=== PATIENT | male | born 1975 | race Caucasian/White ===

== ENCOUNTER 2020-06-01 20:55 | Emergency (ER) | payer MEDICARE, MEDICAID ==
[~2020-06-01] VITALS: Ht 177.8 cm; Wt 90.7 kg
[2020-06-01 22:04] LABS: ALBUMIN 3.2 gm/dl (3.1-4.5); ALKALINE PHOSPHATASE 64 U/L (45-117); BUN 30 mg/dl (7-24); CHLORIDE 103 mmol/L (98-107); CREATININE 2.34 mg/dL (0.70-1.30); POTASSIUM 4.4 mmol/L (3.5-5.1); SGOT/AST 48 IU/L (3-35); SGPT/ALT 34 U/L (12-78); SODIUM 135 mmol/L (136-145); TOTAL PROTEIN 7.1 gm/dL (6.4-8.2)
[2020-06-01 22:05] LABS: TROPONIN I < 0.015 ng/ml (<0.045)
[2020-06-01 22:12] LABS: BASO # 0.1 10*3/uL (0.0-0.1); BASO % 0.5 % (0.0-1.0); EOS % 0.2 % (1.0-4.0); HEMATOCRIT 37.1 % (42.0-52.0); LYMPH # 2.1 10*3/uL (1.3-4.4); LYMPH % 18.6 % (27.0-41.0); MEAN CELL VOLUME 94.4 fl (80.0-94.0); MEAN CORPUSCULAR HGB 31.8 pg (27.0-31.0); MEAN CORPUSCULAR HGB CONC 33.7 g/dl (33.0-37.0); MEAN PLATELET VOLUME 9.5 fl (9.6-12.3); MONO # 1.2 10*3/uL (0.1-1.0); MONO % 10.6 % (3.0-9.0); NEUT # 7.8 10*3/uL (2.3-7.9); NEUT % 69.4 % (47.0-73.0); PLATELET COUNT AUTOMATED 203 10*3/uL (130-400); RED BLOOD COUNT 3.93 10*6/uL (4.50-5.90); RED CELL DISTRI WIDTH 11.7 % (0-14.5); WHITE BLOOD COUNT 11.2 10*3/uL (4.8-10.8)
== END 2020-06-02 02:42 | disposition short-term general hospital (02) ==
LOC: ED 20:55
PROVIDERS: Student in an Organized Health Care Education/Training Program
DX: J93.9 Pneumothorax, unspecified (principal); T14.90XA Injury, unspecified, initial encounter; X58.XXXA Exposure to other specified factors, initial encounter; Y93.89 Activity, other specified; Y92.89 Other specified places as the place of occurrence of the external cause; Y99.8 Other external cause status

== ENCOUNTER 2021-08-12 21:00 | Inpatient (IN) | payer MEDICARE, MEDICAID ==
[~2021-08-12] VITALS: Ht 170.1 cm; Wt 64.0 kg
[2021-08-12 21:19] VITALS: BP 116/66
[2021-08-12 21:29] LABS: HEMATOCRIT 32.1 % (42.0-52.0); MEAN CELL VOLUME 87.2 fl (80.0-94.0); MEAN CORPUSCULAR HGB 32.1 pg (27.0-31.0); MEAN CORPUSCULAR HGB CONC 36.8 g/dl (33.0-37.0); MEAN PLATELET VOLUME 10.4 fl (9.6-12.3); PLATELET COUNT AUTOMATED 124 10*3/uL (130-400); RED BLOOD COUNT 3.68 10*6/uL (4.50-5.90); RED CELL DISTRI WIDTH 11.9 % (0-14.5); WHITE BLOOD COUNT 4.9 10*3/uL (4.8-10.8)
[2021-08-12 21:31] LABS: MANUAL DIFF REFLEX YES
[2021-08-12 21:31] LABS: BILIRUBIN Negative (Negative); BLOOD Trace-Lysed (Negative); CLARITY Clear (Clear); COLOR Yellow (Yellow); GLUCOSE 3+ (Negative); KETONE 1+ (Negative); LEUKO ESTERASE Negative (Negative); NITRITE Negative (Negative); UROBILINOGEN 0.2 E.U./dl (0.0-1.0)
[2021-08-12 21:37] LABS: BACTERIA 1+; EPITHELIAL CELLS 0-2; RBC 0-2 rbc/hpf (0-2); WBC 0-2 wbc/hpf (0-5)
[2021-08-12 21:41] VITALS: BP 110/67
[2021-08-12 21:44] LABS: ALBUMIN 2.8 gm/dl (3.1-4.5); CREATININE 5.55 mg/dL (0.70-1.30); POTASSIUM 4.5 mmol/L (3.5-5.1); TOTAL PROTEIN 6.7 gm/dL (6.4-8.2)
[2021-08-12 22:07] LABS: TOTAL CELLS COUNTED 100 #CELLS
[2021-08-12 22:08] LABS: PLATELET SUFFICIENCY LOW (NORMAL)
[2021-08-12 22:40] VITALS: BP 110/68
[2021-08-12 23:42] VITALS: BP 125/68
[2021-08-13] VITALS (21 sets, daily range): BP systolic 97–197; BP diastolic 56–98
[2021-08-13 01:12] LABS: CREATININE 5.25 mg/dL (0.70-1.30); POTASSIUM 4.2 mmol/L (3.5-5.1)
[2021-08-13 04:21] LABS: HEMATOCRIT 33.3 % (42.0-52.0); MEAN CELL VOLUME 87.2 fl (80.0-94.0); MEAN CORPUSCULAR HGB 32.5 pg (27.0-31.0); PLATELET COUNT AUTOMATED 104 10*3/uL (130-400); RED BLOOD COUNT 3.82 10*6/uL (4.50-5.90); RED CELL DISTRI WIDTH 12.2 % (0-14.5)
[2021-08-13 04:31] LABS: MANUAL DIFF REFLEX YES; MEAN CORPUSCULAR HGB CONC 37.2 g/dl (33.0-37.0)
[2021-08-13 04:32] LABS: WHITE BLOOD COUNT 1.9 10*3/uL (4.8-10.8)
[2021-08-13 04:37] LABS: CREATININE 4.9 mg/dL (0.70-1.30); POTASSIUM 3.9 mmol/L (3.5-5.1)
[2021-08-13 04:53] LABS: PLATELET SUFFICIENCY LOW (NORMAL); TOTAL CELLS COUNTED 100 #CELLS
[2021-08-13 06:28] LABS: POTASSIUM 3.9 mmol/L (3.5-5.1)
[2021-08-13 06:44] LABS: CREATININE 4.92 mg/dL (0.70-1.30); FREE T4 1.11 ng/dl (0.76-1.46); THYROID STIM HORMONE (HS) 1.95 uIU/ml (0.358-4.75)
[2021-08-13 07:51] LABS: CREATININE 4.83 mg/dL (0.70-1.30); POTASSIUM 4.2 mmol/L (3.5-5.1)
[2021-08-13 11:27] LABS: URINE AMPHETAMINES < 1000 (1000ng/ml); URINE BARBITURATES < 200 (200ng/ml); URINE BENZODIAZEPINES < 200 (200ng/ml); URINE CANNABINOIDS (THC) < 50 (50ng/ml); URINE COCAINE < 300 (300ng/ml); URINE METHADONE < 300 (300ng/ml); URINE OPIATES < 300 (300ng/ml)
[2021-08-13 11:31] LABS: URINE PHENCYCLIDINE < 25 (25ng/ml)
[2021-08-13 12:37] LABS: ARTERIAL BLOOD GAS PH 7.467 (7.35-7.45); ARTERIAL BLOOD GAS PO2 103.3 (80-90)
[2021-08-13 13:38] LABS: CREATININE 4.53 mg/dL (0.70-1.30); POTASSIUM 4.4 mmol/L (3.5-5.1)
[2021-08-13 16:22] LABS: CREATININE 4.27 mg/dL (0.70-1.30); POTASSIUM 3.8 mmol/L (3.5-5.1)
[2021-08-13] MEDS ORDERED: RISPERIDONE M-0.5 MG PO (17:38)
[2021-08-13] MEDS ORDERED: LAMICTAL200 MG PO (17:39)
[2021-08-13] MEDS ORDERED: DEPAKOTE ER500 MG PO (17:40)
[2021-08-13] MEDS ORDERED: Depakote500 MG PO (17:41)
[2021-08-13] MEDS ORDERED: CARVEDILOL6.25 MG PO (17:41)
[2021-08-13] MEDS ORDERED: LISINOPRIL2.5 MG PO (17:41)
[2021-08-13] MEDS ORDERED: ZETIA10 MG PO (17:42)
[2021-08-13] MEDS ORDERED: HUMULIN N100 UNIT/1 SC (17:43)
[2021-08-13] MEDS ORDERED: HUMULIN N100 UNIT/1 SQ (17:43)
[2021-08-13] MEDS ORDERED: TRAZODONE100 MG PO (17:44)
[2021-08-13] MEDS ORDERED: SIMVASTATIN20 MG PO (17:44)
[2021-08-13] MEDS ORDERED: FUROSEMIDE40 MG PO (17:44)
[2021-08-13 20:13] LABS: CREATININE 4.11 mg/dL (0.70-1.30); POTASSIUM 4.2 mmol/L (3.5-5.1)
[2021-08-14] VITALS (12 sets, daily range): BP systolic 92–135; BP diastolic 53–76
[2021-08-14 00:38] LABS: CREATININE 3.88 mg/dL (0.70-1.30); POTASSIUM 3.7 mmol/L (3.5-5.1)
[2021-08-14 04:26] LABS: MEAN PLATELET VOLUME 10.3 fl (9.6-12.3); PLATELET COUNT AUTOMATED 97 10*3/uL (130-400); RED BLOOD COUNT 3.19 10*6/uL (4.50-5.90); RED CELL DISTRI WIDTH 12.6 % (0-14.5)
[2021-08-14 04:34] LABS: MANUAL DIFF REFLEX YES; MEAN CELL VOLUME 90.9 fl (80.0-94.0)
[2021-08-14 05:40] LABS: CREATININE 3.68 mg/dL (0.70-1.30); POTASSIUM 3.7 mmol/L (3.5-5.1)
[2021-08-14 07:17] LABS: MEAN CORPUSCULAR HGB CONC 35.2 g/dl (33.0-37.0)
[2021-08-14 07:21] LABS: TOTAL CELLS COUNTED 100 #CELLS
[2021-08-14 07:22] LABS: PLATELET SUFFICIENCY LOW (NORMAL); POLYCHROMASIA SLIGHT; WHITE BLOOD COUNT 7.7 10*3/uL (4.8-10.8)
[2021-08-15] VITALS (13 sets, daily range): BP systolic 87–143; BP diastolic 50–73
[2021-08-15 06:11] LABS: CREATININE 2.5 mg/dL (0.70-1.30); POTASSIUM 4.2 mmol/L (3.5-5.1)
[2021-08-15 06:16] LABS: VALPROIC ACID (DEPAKENE) 33.1 ug/ml (50-100)
[2021-08-15 06:57] LABS: HEMATOCRIT 27.7 % (42.0-52.0); MEAN CORPUSCULAR HGB 32.9 pg (27.0-31.0); MEAN CORPUSCULAR HGB CONC 33.6 g/dl (33.0-37.0); MEAN PLATELET VOLUME 11.6 fl (9.6-12.3); NUCLEATED RED BLOOD CELL 0.6 % (0.0-0.0); PLATELET COUNT AUTOMATED 83 10*3/uL (130-400); RED BLOOD COUNT 2.83 10*6/uL (4.50-5.90); WHITE BLOOD COUNT 6.6 10*3/uL (4.8-10.8)
[2021-08-15 06:59] LABS: MANUAL DIFF REFLEX YES; MEAN CELL VOLUME 97.9 fl (80.0-94.0)
[2021-08-15 07:04] LABS: PLATELET SUFFICIENCY LOW (NORMAL); ROULEAUX SLIGHT; TOTAL CELLS COUNTED 100 #CELLS
[2021-08-15 07:09] LABS: TOXIC GRANULATION SLIGHT
[2021-08-15 12:30] LABS: ABG BASE EXCESS 5.8 mmol/L (-2.0-2.0); ARTERIAL BLOOD GAS PH 7.49 (7.35-7.45); ARTERIAL BLOOD GAS PO2 82.8 (80-90)
[2021-08-16] VITALS (12 sets, daily range): BP systolic 90–112; BP diastolic 49–62
[2021-08-16 05:03] LABS: CREATININE 2.31 mg/dL (0.70-1.30); POTASSIUM 3.6 mmol/L (3.5-5.1)
[2021-08-16 06:58] LABS: HEMATOCRIT 26.6 % (42.0-52.0); MEAN CORPUSCULAR HGB 32.3 pg (27.0-31.0); MEAN CORPUSCULAR HGB CONC 31.6 g/dl (33.0-37.0); MEAN PLATELET VOLUME 11.5 fl (9.6-12.3); NUCLEATED RED BLOOD CELL 0.1 10*3/uL (0.0-0.0); PLATELET COUNT AUTOMATED 95 10*3/uL (130-400); RED CELL DISTRI WIDTH 13.1 % (0-14.5); WHITE BLOOD COUNT 7.2 10*3/uL (4.8-10.8)
[2021-08-16 07:30] LABS: MANUAL DIFF REFLEX YES; MEAN CELL VOLUME 102.3 fl (80.0-94.0)
[2021-08-16 07:37] LABS: ATYPICAL LYMPHS 1 % (0-0); BASOPHILS 1 % (0-1); PLATELET SUFFICIENCY LOW (NORMAL); POLYCHROMASIA SLIGHT; ROULEAUX SLIGHT; TOTAL CELLS COUNTED 100 #CELLS; TOXIC GRANULATION SLIGHT
[2021-08-16 10:42] LABS: BILIRUBIN Negative (Negative); BLOOD 2+ (Negative); CLARITY Clear (Clear); COLOR Yellow (Yellow); GLUCOSE 3+ (Negative); KETONE Trace (Negative); LEUKO ESTERASE Negative (Negative); NITRITE Negative (Negative); PH 5.5 (4.5-8.0)
[2021-08-16 12:18] LABS: CREATININE 2.16 mg/dL (0.70-1.30); POTASSIUM 4.1 mmol/L (3.5-5.1)
[2021-08-16 20:35] LABS: CREATININE 1.85 mg/dL (0.70-1.30); POTASSIUM 3.4 mmol/L (3.5-5.1)
[2021-08-17] VITALS (10 sets, daily range): BP systolic 92–145; BP diastolic 48–73
[2021-08-17 02:17] LABS: CREATININE 1.75 mg/dL (0.70-1.30)
[2021-08-17 06:30] LABS: MEAN CELL VOLUME 103.3 fl (80.0-94.0); MEAN CORPUSCULAR HGB 32.6 pg (27.0-31.0); MEAN CORPUSCULAR HGB CONC 31.6 g/dl (33.0-37.0); MEAN PLATELET VOLUME 10.9 fl (9.6-12.3); NUCLEATED RED BLOOD CELL 0.1 10*3/uL (0.0-0.0); NUCLEATED RED BLOOD CELL 1.1 % (0.0-0.0); PLATELET COUNT AUTOMATED 100 10*3/uL (130-400); RED BLOOD COUNT 2.42 10*6/uL (4.50-5.90); RED CELL DISTRI WIDTH 12.4 % (0-14.5); WHITE BLOOD COUNT 5.3 10*3/uL (4.8-10.8)
[2021-08-17 06:32] LABS: ALBUMIN 1.6 gm/dl (3.1-4.5); POTASSIUM 3.7 mmol/L (3.5-5.1)
[2021-08-17 06:38] LABS: CREATININE 1.63 mg/dL (0.70-1.30); TOTAL PROTEIN 5.9 gm/dL (6.4-8.2)
[2021-08-17 07:08] LABS: MANUAL DIFF REFLEX YES
[2021-08-17 07:37] LABS: PLATELET SUFFICIENCY LOW (NORMAL); POLYCHROMASIA SLIGHT; TOTAL CELLS COUNTED 100 #CELLS
[2021-08-17 07:38] LABS: ROULEAUX SLIGHT; TOXIC GRANULATION SLIGHT
[2021-08-17 12:39] LABS: BUN 37 mg/dl (7-24); CHLORIDE 108 mmol/L (98-107); CREATININE 1.54 mg/dL (0.70-1.30); POTASSIUM 3.9 mmol/L (3.5-5.1); SODIUM 144 mmol/L (136-145)
[2021-08-17 15:01] LABS: ABG BASE EXCESS 6.3 mmol/L (-2.0-2.0); ARTERIAL BLOOD GAS PH 7.494 (7.35-7.45)
[2021-08-18] VITALS: BP 120/69
[2021-08-18 04:00] VITALS: BP 113/61
[2021-08-18 05:44] LABS: ALBUMIN 1.6 gm/dl (3.1-4.5); ALKALINE PHOSPHATASE 85 U/L (45-117); BUN 37 mg/dl (7-24); CHLORIDE 109 mmol/L (98-107); POTASSIUM 4.2 mmol/L (3.5-5.1); SGOT/AST 32 IU/L (3-35); SGPT/ALT 13 U/L (12-78); SODIUM 144 mmol/L (136-145)
[2021-08-18 06:17] LABS: HEMATOCRIT 27.7 % (42.0-52.0); MEAN CORPUSCULAR HGB 31.9 pg (27.0-31.0); MEAN CORPUSCULAR HGB CONC 32.1 g/dl (33.0-37.0); MEAN PLATELET VOLUME 10.7 fl (9.6-12.3); NUCLEATED RED BLOOD CELL 0.1 10*3/uL (0.0-0.0); NUCLEATED RED BLOOD CELL 1.1 % (0.0-0.0); RED BLOOD COUNT 2.79 10*6/uL (4.50-5.90); RED CELL DISTRI WIDTH 11.8 % (0-14.5); WHITE BLOOD COUNT 6.4 10*3/uL (4.8-10.8)
[2021-08-18 06:44] LABS: MEAN CELL VOLUME 99.3 fl (80.0-94.0)
[2021-08-18 06:45] LABS: MANUAL DIFF REFLEX YES; PLATELET COUNT AUTOMATED 143 10*3/uL (130-400)
[2021-08-18 08:00] VITALS: BP 122/61
[2021-08-18 08:42] LABS: BASOPHILS 1 % (0-1); PLATELET SUFFICIENCY NORMAL (NORMAL); TOTAL CELLS COUNTED 100 #CELLS
[2021-08-18 12:00] VITALS: BP 97/61
[2021-08-18 16:00] VITALS: BP 135/64
[2021-08-18 20:00] VITALS: BP 128/83
[2021-08-19] VITALS: BP 130/66
[2021-08-19 04:58] LABS: BUN 31 mg/dl (7-24); CHLORIDE 104 mmol/L (98-107); CREATININE 1.43 mg/dL (0.70-1.30); SODIUM 140 mmol/L (136-145)
[2021-08-19 07:23] LABS: HEMATOCRIT 30.8 % (42.0-52.0); MEAN CORPUSCULAR HGB 32.1 pg (27.0-31.0); MEAN CORPUSCULAR HGB CONC 31.8 g/dl (33.0-37.0); MEAN PLATELET VOLUME 10.3 fl (9.6-12.3); NUCLEATED RED BLOOD CELL 0.1 10*3/uL (0.0-0.0); NUCLEATED RED BLOOD CELL 0.8 % (0.0-0.0); RED BLOOD COUNT 3.05 10*6/uL (4.50-5.90); RED CELL DISTRI WIDTH 11.8 % (0-14.5); WHITE BLOOD COUNT 7.5 10*3/uL (4.8-10.8)
[2021-08-19 07:27] LABS: MANUAL DIFF REFLEX YES; PLATELET COUNT AUTOMATED 222 10*3/uL (130-400)
[2021-08-19 07:32] LABS: TOTAL CELLS COUNTED 100 #CELLS
[2021-08-19 07:33] LABS: TOXIC GRANULATION MODERATE
[2021-08-19 07:34] LABS: OVALOCYTES FEW; POLYCHROMASIA SLIGHT
[2021-08-19 07:35] LABS: PLATELET SUFFICIENCY NORMAL (NORMAL)
[2021-08-19 08:00] VITALS: BP 123/57
[2021-08-19 12:00] VITALS: BP 128/73
[2021-08-19] MEDS ORDERED: CEFDINIR300 MG PO (14:18)
[2021-08-19 16:00] VITALS: BP 133/67
[2021-08-19 20:00] VITALS: BP 131/58
[2021-08-20] VITALS: BP 127/56
[2021-08-20 06:25] LABS: BUN 24 mg/dl (7-24); CHLORIDE 102 mmol/L (98-107); CREATININE 1.44 mg/dL (0.70-1.30); POTASSIUM 4.3 mmol/L (3.5-5.1); SODIUM 138 mmol/L (136-145)
[2021-08-20 06:30] LABS: HEMATOCRIT 29.9 % (42.0-52.0); MEAN CELL VOLUME 99.3 fl (80.0-94.0); MEAN CORPUSCULAR HGB 31.9 pg (27.0-31.0); MEAN CORPUSCULAR HGB CONC 32.1 g/dl (33.0-37.0); MEAN PLATELET VOLUME 9.5 fl (9.6-12.3); NUCLEATED RED BLOOD CELL 0.4 % (0.0-0.0); PLATELET COUNT AUTOMATED 284 10*3/uL (130-400); RED BLOOD COUNT 3.01 10*6/uL (4.50-5.90); RED CELL DISTRI WIDTH 11.7 % (0-14.5); WHITE BLOOD COUNT 6.7 10*3/uL (4.8-10.8)
[2021-08-20 06:53] LABS: MANUAL DIFF REFLEX YES
[2021-08-20 07:31] LABS: PLATELET SUFFICIENCY NORMAL (NORMAL); POLYCHROMASIA SLIGHT; TOTAL CELLS COUNTED 100 #CELLS; TOXIC GRANULATION SLIGHT
[2021-08-20 08:00] VITALS: BP 126/54
[2021-08-20 11:55] VITALS: BP 98/70
[2021-08-20 16:00] VITALS: BP 91/47
[2021-08-20 20:00] VITALS: BP 97/54
[2021-08-21] VITALS: BP 91/50
[2021-08-21 06:23] LABS: POTASSIUM 4.5 mmol/L (3.5-5.1)
[2021-08-21 06:25] LABS: CREATININE 1.68 mg/dL (0.70-1.30)
[2021-08-21 06:35] LABS: BASO % 0.5 % (0.0-1.0); EOS # 0.1 10*3/uL (0.0-0.4); EOS % 1.5 % (1.0-4.0); HEMATOCRIT 25.2 % (42.0-52.0); LYMPH # 2.4 10*3/uL (1.3-4.4); LYMPH % 36.3 % (27.0-41.0); MEAN CELL VOLUME 97.7 fl (80.0-94.0); MEAN CORPUSCULAR HGB 32.6 pg (27.0-31.0); MEAN CORPUSCULAR HGB CONC 33.3 g/dl (33.0-37.0); MEAN PLATELET VOLUME 9.4 fl (9.6-12.3); MONO # 0.8 10*3/uL (0.1-1.0); NEUT # 3.1 10*3/uL (2.3-7.9); NEUT % 47.2 % (47.0-73.0); NUCLEATED RED BLOOD CELL 0.6 % (0.0-0.0); PLATELET COUNT AUTOMATED 347 10*3/uL (130-400); RED BLOOD COUNT 2.58 10*6/uL (4.50-5.90); RED CELL DISTRI WIDTH 11.6 % (0-14.5); WHITE BLOOD COUNT 6.5 10*3/uL (4.8-10.8)
[2021-08-21 08:00] VITALS: BP 97/57
[2021-08-21 12:00] VITALS: BP 109/55
[2021-08-21] MEDS ORDERED: HUMALOG100 UNIT/1 SC (15:03)
[2021-08-21 15:59] VITALS: BP 121/56
[2021-08-22 04:06] LABS: TB1 Ag VALUE 0.01 IU/mL (.)
== END 2021-08-21 19:15 | DRG 870 ==
LOC: ED 21:00 → ICCU 08-13 02:06 → EDHOLD 08-13 02:06 → ICCU 08-13 07:27 → EDHOLD 08-13 07:30 → ICCU 08-13 08:21 → 5E 08-19 16:59
PROVIDERS: Internal Medicine; Internal Medicine Critical Care Medicine; Internal Medicine Infectious Disease; Student in an Organized Health Care Education/Training Program; ADMIT Student in an Organized Health Care Education/Training Program; ATTEND Student in an Organized Health Care Education/Training Program
PROC: 0BH17EZ Insertion of Endotracheal Airway into Trachea, Via Natural or Artificial Opening (ICD-10-PCS; 2021-08-13)
PROC: 5A1955Z Respiratory Ventilation, Greater than 96 Consecutive Hours (ICD-10-PCS; 2021-08-13)
PROC: 02HV33Z Insertion of Infusion Device into Superior Vena Cava, Percutaneous Approach (ICD-10-PCS; 2021-08-13)
PROC: B548ZZA Ultrasonography of Superior Vena Cava, Guidance (ICD-10-PCS; 2021-08-13)
PROC: BD1BYZZ Fluoroscopy of Mouth/Oropharynx using Other Contrast (ICD-10-PCS; principal; 2021-08-21)
DX: A41.9 Sepsis, unspecified organism (principal); E10.10 Type 1 diabetes mellitus with ketoacidosis without coma; J96.01 Acute respiratory failure with hypoxia; N17.0 Acute kidney failure with tubular necrosis; E43 Unspecified severe protein-calorie malnutrition; J15.5 Pneumonia due to Escherichia coli; D61.818 Other pancytopenia; E87.1 Hypo-osmolality and hyponatremia; Z66 Do not resuscitate; Z51.5 Encounter for palliative care; T17.900A Unspecified foreign body in respiratory tract, part unspecified causing asphyxiation, initial encounter; D69.6 Thrombocytopenia, unspecified; N18.9 Chronic kidney disease, unspecified; R65.20 Severe sepsis without septic shock; R56.9 Unspecified convulsions; E78.5 Hyperlipidemia, unspecified; F41.9 Anxiety disorder, unspecified; E10.22 Type 1 diabetes mellitus with diabetic chronic kidney disease; I12.9 Hypertensive chronic kidney disease with stage 1 through stage 4 chronic kidney disease, or unspecified chronic kidney disease; Y92.89 Other specified places as the place of occurrence of the external cause; Z68.22 Body mass index [BMI] 22.0-22.9, adult

== ENCOUNTER 2021-08-26 05:28 | Inpatient (IN) | payer MEDICARE, MEDICAID ==
[~2021-08-26] VITALS: Ht 165.1 cm; Wt 65.6 kg
[2021-08-26] VITALS (7 sets, daily range): BP systolic 87–111; BP diastolic 49–62
[~2021-08-26 05:28] MED LIST: CARVEDILOL6.25 MG PO; CEFDINIR300 MG PO; DEPAKOTE ER500 MG PO; Depakote500 MG PO; FUROSEMIDE40 MG PO; HUMALOG100 UNIT/1 SC; HUMULIN N100 UNIT/1 SC; HUMULIN N100 UNIT/1 SQ; LAMICTAL200 MG PO; LISINOPRIL2.5 MG PO; RISPERIDONE M-0.5 MG PO; SIMVASTATIN20 MG PO; TRAZODONE100 MG PO; ZETIA10 MG PO
[2021-08-26 06:00] LABS: ABG BASE EXCESS 5.4 mmol/L (-2.0-2.0); ARTERIAL BLOOD GAS PH 7.419 (7.35-7.45); ARTERIAL BLOOD GAS PO2 76.3 (80-90)
[2021-08-26 06:18] LABS: BASO % 0.3 % (0.0-1.0); EOS % 0.3 % (1.0-4.0); HEMATOCRIT 29.7 % (42.0-52.0); LYMPH # 2.2 10*3/uL (1.3-4.4); MEAN CELL VOLUME 96.7 fl (80.0-94.0); MEAN CORPUSCULAR HGB 32.6 pg (27.0-31.0); MEAN CORPUSCULAR HGB CONC 33.7 g/dl (33.0-37.0); MEAN PLATELET VOLUME 8.6 fl (9.6-12.3); MONO # 0.7 10*3/uL (0.1-1.0); MONO % 6.9 % (3.0-9.0); NEUT # 7.4 10*3/uL (2.3-7.9); NEUT % 70.4 % (47.0-73.0); PLATELET COUNT AUTOMATED 589 10*3/uL (130-400); RED BLOOD COUNT 3.07 10*6/uL (4.50-5.90); RED CELL DISTRI WIDTH 12.8 % (0-14.5); WHITE BLOOD COUNT 10.5 10*3/uL (4.8-10.8)
[2021-08-26 06:26] LABS: ALKALINE PHOSPHATASE 111 U/L (45-117); BUN 15 mg/dl (7-24); CHLORIDE 99 mmol/L (98-107); CREATININE 1.74 mg/dL (0.70-1.30); POTASSIUM 3.6 mmol/L (3.5-5.1); SGOT/AST 18 IU/L (3-35); SGPT/ALT 21 U/L (12-78); SODIUM 132 mmol/L (136-145); TOTAL PROTEIN 7.2 gm/dL (6.4-8.2)
[2021-08-26 06:41] LABS: BILIRUBIN Negative (Negative); BLOOD Negative (Negative); CLARITY Clear (Clear); COLOR Yellow (Yellow); GLUCOSE 3+ (Negative); KETONE Negative (Negative); LEUKO ESTERASE Negative (Negative); NITRITE Negative (Negative); SPECIFIC GRAVITY 1.015 (1.001-1.030); UROBILINOGEN 0.2 E.U./dl (0.0-1.0)
[2021-08-26 06:56] LABS: EPITHELIAL CELLS 0-2; WBC 0-2 wbc/hpf (0-5)
[2021-08-26 06:57] LABS: BACTERIA TRACE; HYALINE CAST 21-30; MUCOUS 1+
[2021-08-26 18:07] LABS: CREATININE 1.55 mg/dL (0.70-1.30)
[2021-08-27 06:26] LABS: BASO % 0.6 % (0.0-1.0); EOS % 0.5 % (1.0-4.0); HEMATOCRIT 25.6 % (42.0-52.0); LYMPH % 31.4 % (27.0-41.0); MEAN CORPUSCULAR HGB 32.6 pg (27.0-31.0); MEAN CORPUSCULAR HGB CONC 33.6 g/dl (33.0-37.0); MEAN PLATELET VOLUME 8.8 fl (9.6-12.3); MONO # 0.7 10*3/uL (0.1-1.0); MONO % 10.7 % (3.0-9.0); NEUT # 3.5 10*3/uL (2.3-7.9); NEUT % 56.3 % (47.0-73.0); PLATELET COUNT AUTOMATED 456 10*3/uL (130-400); RED BLOOD COUNT 2.64 10*6/uL (4.50-5.90); WHITE BLOOD COUNT 6.3 10*3/uL (4.8-10.8)
[2021-08-27 06:36] LABS: BUN 13 mg/dl (7-24); CHLORIDE 101 mmol/L (98-107); CREATININE 1.24 mg/dL (0.70-1.30); POTASSIUM 3.9 mmol/L (3.5-5.1); SODIUM 136 mmol/L (136-145)
[2021-08-27 08:00] VITALS: BP 108/45
[2021-08-27 12:00] VITALS: BP 110/67
[2021-08-27 16:00] VITALS: BP 92/66
[2021-08-27 20:00] VITALS: BP 100/42
[2021-08-28] VITALS: BP 88/46; BP 92/50
[2021-08-28 12:15] VITALS: BP 115/54
[2021-08-28 15:58] VITALS: BP 120/58
[2021-08-28 20:00] VITALS: BP 106/60
[2021-08-29] VITALS: BP 99/52
[2021-08-29 06:16] LABS: BASO # 0.1 10*3/uL (0.0-0.1); BASO % 1.4 % (0.0-1.0); EOS % 0.5 % (1.0-4.0); HEMATOCRIT 25.3 % (42.0-52.0); LYMPH # 3.3 10*3/uL (1.3-4.4); LYMPH % 52.8 % (27.0-41.0); MEAN CELL VOLUME 94.8 fl (80.0-94.0); MEAN CORPUSCULAR HGB 31.8 pg (27.0-31.0); MEAN CORPUSCULAR HGB CONC 33.6 g/dl (33.0-37.0); MEAN PLATELET VOLUME 9.1 fl (9.6-12.3); MONO # 0.6 10*3/uL (0.1-1.0); NEUT # 2.2 10*3/uL (2.3-7.9); NUCLEATED RED BLOOD CELL 0.3 % (0.0-0.0); PLATELET COUNT AUTOMATED 369 10*3/uL (130-400); RED BLOOD COUNT 2.67 10*6/uL (4.50-5.90); WHITE BLOOD COUNT 6.3 10*3/uL (4.8-10.8)
[2021-08-29 06:39] LABS: BUN 14 mg/dl (7-24); CHLORIDE 100 mmol/L (98-107); CREATININE 1.29 mg/dL (0.70-1.30); POTASSIUM 3.7 mmol/L (3.5-5.1); SODIUM 137 mmol/L (136-145)
[2021-08-29 07:43] VITALS: BP 90/44
[2021-08-29] MEDS ORDERED: VITAMIN D350 MC2 PO (10:44)
[2021-08-29] MEDS ORDERED: Humalog SQ (10:44)
== END 2021-08-29 11:23 | DRG 637 ==
LOC: ED 05:28 → 5E 08:08 → EDHOLD 08:08 → 5E 09:51
PROVIDERS: Emergency Medicine; Registered Nurse; ADMIT Internal Medicine; ATTEND Internal Medicine
PROC: BD1BYZZ Fluoroscopy of Mouth/Oropharynx using Other Contrast (ICD-10-PCS; principal; 2021-08-28)
DX: E10.649 Type 1 diabetes mellitus with hypoglycemia without coma (principal); E43 Unspecified severe protein-calorie malnutrition; G93.41 Metabolic encephalopathy; J96.11 Chronic respiratory failure with hypoxia; N17.0 Acute kidney failure with tubular necrosis; N18.32 Chronic kidney disease, stage 3b; Z20.822 Contact with and (suspected) exposure to COVID-19; Z66 Do not resuscitate; R56.9 Unspecified convulsions; E78.2 Mixed hyperlipidemia; F41.9 Anxiety disorder, unspecified; Z51.5 Encounter for palliative care; E10.22 Type 1 diabetes mellitus with diabetic chronic kidney disease; D53.9 Nutritional anemia, unspecified; R62.50 Unspecified lack of expected normal physiological development in childhood; F43.21 Adjustment disorder with depressed mood; Z68.23 Body mass index [BMI] 23.0-23.9, adult; Z82.49 Family history of ischemic heart disease and other diseases of the circulatory system; Z79.4 Long term (current) use of insulin; Z79.899 Other long term (current) drug therapy

== ENCOUNTER 2021-09-09 00:28 | Inpatient (IN) | payer MEDICARE, MEDICAID ==
[2021-09-09] VITALS (8 sets, daily range): BP systolic 110–138; BP diastolic 57–94
[~2021-09-09] VITALS: Ht 177.8 cm; Wt 66.7 kg
[~2021-09-09 00:28] MED LIST changes: +Humalog SQ; +VITAMIN D350 MC2 PO
[2021-09-09] MEDS ORDERED: TYLENOL325 M1 PO (00:50)
[2021-09-09] MEDS ORDERED: LANTUS SOL100 UNIT/1 SC (00:51)
[2021-09-09] MEDS ORDERED: DEPAKOTE SPRIN125 MG PO ×2 (00:52→00:53)
[2021-09-09 01:20] LABS: BASO % 0.5 % (0.0-1.0); HEMATOCRIT 29.9 % (42.0-52.0); LYMPH # 1.9 10*3/uL (1.3-4.4); LYMPH % 52.9 % (27.0-41.0); MEAN CELL VOLUME 96.8 fl (80.0-94.0); MEAN CORPUSCULAR HGB 32.7 pg (27.0-31.0); MEAN CORPUSCULAR HGB CONC 33.8 g/dl (33.0-37.0); MEAN PLATELET VOLUME 9.5 fl (9.6-12.3); MONO # 0.3 10*3/uL (0.1-1.0); MONO % 7.9 % (3.0-9.0); NEUT # 1.4 10*3/uL (2.3-7.9); NEUT % 38.4 % (47.0-73.0); PLATELET COUNT AUTOMATED 162 10*3/uL (130-400); RED BLOOD COUNT 3.09 10*6/uL (4.50-5.90); RED CELL DISTRI WIDTH 13.7 % (0-14.5); WHITE BLOOD COUNT 3.7 10*3/uL (4.8-10.8)
[2021-09-09 01:35] LABS: CREATININE 1.64 mg/dL (0.70-1.30); POTASSIUM 3.7 mmol/L (3.5-5.1); TOTAL PROTEIN 6.3 gm/dL (6.4-8.2)
[2021-09-09 01:45] LABS: VALPROIC ACID (DEPAKENE) 134.7 ug/ml (50-100)
[2021-09-09 02:21] LABS: BILIRUBIN Negative (Negative); BLOOD Negative (Negative); CLARITY Clear (Clear); COLOR Yellow (Yellow); GLUCOSE 1+ (Negative); KETONE Negative (Negative); LEUKO ESTERASE Negative (Negative); NITRITE Negative (Negative); UROBILINOGEN 0.2 E.U./dl (0.0-1.0)
[2021-09-09 02:34] LABS: RBC 0-2 rbc/hpf (0-2); WBC 0-2 wbc/hpf (0-5)
[2021-09-09 06:40] LABS: ALKALINE PHOSPHATASE 89 U/L (45-117); BUN 18 mg/dl (7-24); CHLORIDE 96 mmol/L (98-107); SGOT/AST 15 IU/L (3-35); SGPT/ALT 13 U/L (12-78); SODIUM 135 mmol/L (136-145); TOTAL PROTEIN 6.6 gm/dL (6.4-8.2)
[2021-09-09 06:44] LABS: POTASSIUM 4.8 mmol/L (3.5-5.1)
[2021-09-09 07:07] LABS: BASO % 0.5 % (0.0-1.0); HEMATOCRIT 33.5 % (42.0-52.0); LYMPH # 1.3 10*3/uL (1.3-4.4); LYMPH % 32.5 % (27.0-41.0); MEAN CELL VOLUME 96.8 fl (80.0-94.0); MEAN CORPUSCULAR HGB 32.7 pg (27.0-31.0); MEAN CORPUSCULAR HGB CONC 33.7 g/dl (33.0-37.0); MEAN PLATELET VOLUME 9.8 fl (9.6-12.3); MONO # 0.2 10*3/uL (0.1-1.0); MONO % 3.8 % (3.0-9.0); NEUT # 2.5 10*3/uL (2.3-7.9); NEUT % 62.9 % (47.0-73.0); PLATELET COUNT AUTOMATED 147 10*3/uL (130-400); RED BLOOD COUNT 3.46 10*6/uL (4.50-5.90); RED CELL DISTRI WIDTH 13.7 % (0-14.5)
[2021-09-10] VITALS: BP 101/50
[2021-09-10 05:23] LABS: HEMATOCRIT 27.8 % (42.0-52.0); MEAN CELL VOLUME 98.2 fl (80.0-94.0); MEAN CORPUSCULAR HGB 32.5 pg (27.0-31.0); MEAN CORPUSCULAR HGB CONC 33.1 g/dl (33.0-37.0); MEAN PLATELET VOLUME 9.6 fl (9.6-12.3); PLATELET COUNT AUTOMATED 122 10*3/uL (130-400); RED BLOOD COUNT 2.83 10*6/uL (4.50-5.90); RED CELL DISTRI WIDTH 13.6 % (0-14.5); WHITE BLOOD COUNT 4.6 10*3/uL (4.8-10.8)
[2021-09-10 05:27] LABS: BUN 14 mg/dl (7-24); CHLORIDE 103 mmol/L (98-107); CREATININE 1.26 mg/dL (0.70-1.30); SGOT/AST 8 IU/L (3-35); SGPT/ALT 8 U/L (12-78); TOTAL PROTEIN 5.4 gm/dL (6.4-8.2)
[2021-09-10 05:33] LABS: MANUAL DIFF REFLEX YES
[2021-09-10 05:36] LABS: ALKALINE PHOSPHATASE 67 U/L (45-117); VALPROIC ACID (DEPAKENE) 65.4 ug/ml (50-100)
[2021-09-10 05:51] LABS: POTASSIUM 3.7 mmol/L (3.5-5.1); SODIUM 141 mmol/L (136-145)
[2021-09-10 06:02] LABS: ATYPICAL LYMPHS 1 % (0-0); TOTAL CELLS COUNTED 100 #CELLS
[2021-09-10 06:03] LABS: PLATELET SUFFICIENCY LOW (NORMAL)
[2021-09-10 08:27] VITALS: BP 99/51
[2021-09-10 12:00] VITALS: BP 101/52
[2021-09-10 16:00] VITALS: BP 81/60
[2021-09-10 20:00] VITALS: BP 121/63
[2021-09-11] VITALS: BP 127/67
[2021-09-11 06:02] LABS: BUN 13 mg/dl (7-24); CHLORIDE 102 mmol/L (98-107); CREATININE 1.37 mg/dL (0.70-1.30); SODIUM 138 mmol/L (136-145)
[2021-09-11 06:11] LABS: POTASSIUM 4.8 mmol/L (3.5-5.1)
[2021-09-11 06:18] LABS: HEMATOCRIT 27.2 % (42.0-52.0); MEAN CELL VOLUME 98.6 fl (80.0-94.0); MEAN CORPUSCULAR HGB 32.2 pg (27.0-31.0); MEAN CORPUSCULAR HGB CONC 32.7 g/dl (33.0-37.0); MEAN PLATELET VOLUME 9.8 fl (9.6-12.3); PLATELET COUNT AUTOMATED 109 10*3/uL (130-400); RED BLOOD COUNT 2.76 10*6/uL (4.50-5.90); RED CELL DISTRI WIDTH 13.6 % (0-14.5); WHITE BLOOD COUNT 4.4 10*3/uL (4.8-10.8)
[2021-09-11 06:19] LABS: MANUAL DIFF REFLEX YES
[2021-09-11 07:21] LABS: BASOPHILS 2 % (0-1); TOTAL CELLS COUNTED 100 #CELLS
[2021-09-11 07:22] LABS: PLATELET SUFFICIENCY NORMAL (NORMAL); POLYCHROMASIA SLIGHT
[2021-09-11 08:21] VITALS: BP 106/46
[2021-09-11 11:43] VITALS: BP 121/59
[2021-09-11] MEDS ORDERED: AUGMENTIN 875-875 MG PO (12:39)
== END 2021-09-11 15:26 | DRG 917 ==
LOC: ED 00:28 → EDHOLD 05:14 → 5E 05:24
PROVIDERS: Emergency Medicine; Internal Medicine; ADMIT Internal Medicine; ATTEND Internal Medicine
DX: T42.6X1A Poisoning by other antiepileptic and sedative-hypnotic drugs, accidental (unintentional), initial encounter (principal); G93.41 Metabolic encephalopathy; J69.0 Pneumonitis due to inhalation of food and vomit; N17.0 Acute kidney failure with tubular necrosis; N18.5 Chronic kidney disease, stage 5; J96.11 Chronic respiratory failure with hypoxia; I12.0 Hypertensive chronic kidney disease with stage 5 chronic kidney disease or end stage renal disease; Z51.5 Encounter for palliative care; D53.9 Nutritional anemia, unspecified; E87.8 Other disorders of electrolyte and fluid balance, not elsewhere classified; R56.9 Unspecified convulsions; Z66 Do not resuscitate; E78.5 Hyperlipidemia, unspecified; Z20.822 Contact with and (suspected) exposure to COVID-19; F43.21 Adjustment disorder with depressed mood; E10.65 Type 1 diabetes mellitus with hyperglycemia; E10.22 Type 1 diabetes mellitus with diabetic chronic kidney disease; E10.649 Type 1 diabetes mellitus with hypoglycemia without coma; Z79.1 Long term (current) use of non-steroidal anti-inflammatories (NSAID); Z79.4 Long term (current) use of insulin; Y92.89 Other specified places as the place of occurrence of the external cause; Z79.899 Other long term (current) drug therapy; Z83.3 Family history of diabetes mellitus; Z82.49 Family history of ischemic heart disease and other diseases of the circulatory system

== ENCOUNTER → 2023-04-10 | Outpatient (CLI) | payer MEDICARE, MEDICAID ==
[~2023-04-10] MED LIST changes: +ASPIRIN ADULT L81 M2 PO; +AUGMENTIN 875-875 MG PO; +DEPAKOTE SPRIN125 MG PO; +DIVALPROEX SOD500 M1 PO; +HYDROCODONE-AC1 EAC1 PO; +LANTUS SOL100 UNIT/1 SC; +LASIX40 MG PO; +LEVEMIR100 UNIT/1 SC; +LIPITOR20 MG PO; +NOVOLOG100 UNIT/1 SQ; +OMEPRAZOLE MAGN20 MG PO; +PROVERA10 MG PO; +REMERON SOLTAB15 MG PO; +RISPERDAL0.5 MG PO; +TYLENOL325 M1 PO; +VITAMIN D350 MCG PO; +ZESTRIL2.5 MG PO
== END | disposition home or self-care (01) ==
LOC: ORTHO 01:43
PROVIDERS: ATTEND Orthopaedic Surgery
DX: S72.042D Displaced fracture of base of neck of left femur, subsequent encounter for closed fracture with routine healing (principal); X58.XXXD Exposure to other specified factors, subsequent encounter; Z96.642 Presence of left artificial hip joint

== ENCOUNTER → 2023-05-22 | Outpatient (CLI) | payer OTHER | END | disposition home or self-care (01) | LOC: ORTHO 01:20 | PROVIDERS: ATTEND Orthopaedic Surgery | DX: S72.042D Displaced fracture of base of neck of left femur, subsequent encounter for closed fracture with routine healing (principal); I70.202 Unspecified atherosclerosis of native arteries of extremities, left leg; X58.XXXD Exposure to other specified factors, subsequent encounter ==

== ENCOUNTER 2023-10-19 18:54 | Emergency (ER) | payer OTHER ==
[~2023-10-19] VITALS: Ht 172.7 cm; Wt 98.9 kg
[~2023-10-19 18:54] MED LIST changes: +DOXYCYCLINE HY100 M3 PO; +KLOR-CON M2020 ME1 PO; +MUCUS RELIEF600 MG PO; +PREDNISONE10 MG PO
[2023-10-19] MEDS ORDERED: Bacitracin Zinc 14 GM TUBE T ONE (20:50)
== END 2023-10-19 21:10 ==
LOC: ED 18:54
DX: S00.03XA Contusion of scalp, initial encounter (principal); S50.02XA Contusion of left elbow, initial encounter; E11.9 Type 2 diabetes mellitus without complications; Z79.4 Long term (current) use of insulin; F32.A Depression, unspecified; F41.9 Anxiety disorder, unspecified; I10 Essential (primary) hypertension; E78.5 Hyperlipidemia, unspecified; Z98.890 Other specified postprocedural states; W19.XXXA Unspecified fall, initial encounter; Y93.89 Activity, other specified; Y92.002 Bathroom of unspecified non-institutional (private) residence as the place of occurrence of the external cause; Y99.8 Other external cause status

== ENCOUNTER 2023-12-10 11:42 | Emergency (ER) | payer OTHER ==
[~2023-12-10] VITALS: Ht 170.1 cm; Wt 113.4 kg
== END 2023-12-10 13:57 ==
LOC: ED 11:42
DX: S00.01XA Abrasion of scalp, initial encounter (principal); E11.9 Type 2 diabetes mellitus without complications; Z79.899 Other long term (current) drug therapy; Z79.2 Long term (current) use of antibiotics; Z79.4 Long term (current) use of insulin; Z98.890 Other specified postprocedural states; W06.XXXA Fall from bed, initial encounter; Y93.89 Activity, other specified; Y92.128 Other place in nursing home as the place of occurrence of the external cause; Y99.8 Other external cause status

== ENCOUNTER 2024-02-24 19:28 | Emergency (ER) | payer OTHER ==
[~2024-02-24] VITALS: Ht 177.8 cm; Wt 113.4 kg
[2024-02-24] MEDS ORDERED: SODIUM CHLORIDE 0.9% 1,000 ML IV ONE (19:35)
[2024-02-24 19:43] LABS: BASO % 0.5 % (0.0-1.0); EOS % 0.5 % (1.0-4.0); HEMATOCRIT 26.9 % (42.0-52.0); LYMPH # 1.8 10*3/uL (1.3-4.4); LYMPH % 30.6 % (27.0-41.0); MEAN CELL VOLUME 99.6 fl (80.0-94.0); MEAN CORPUSCULAR HGB 32.6 pg (27.0-31.0); MEAN CORPUSCULAR HGB CONC 32.7 g/dl (33.0-37.0); MEAN PLATELET VOLUME 9.6 fl (9.6-12.3); MONO # 0.7 10*3/uL (0.1-1.0); MONO % 11.9 % (3.0-9.0); NEUT # 3.3 10*3/uL (2.3-7.9); NEUT % 55.7 % (47.0-73.0); PLATELET COUNT AUTOMATED 211 10*3/uL (130-400); RED CELL DISTRI WIDTH 11.9 % (0-14.5)
[2024-02-24 20:08] LABS: POTASSIUM 4.8 mmol/L (3.4-5.1); TOTAL PROTEIN 5.9 gm/dL (6.0-8.0)
[2024-02-24] MEDS ORDERED: INSULIN REGULAR, HUMAN 1 UNIT/0.01 ML IV ONE (20:20)
== END 2024-02-24 22:04 | disposition home or self-care (01) ==
LOC: ED 19:28
PROVIDERS: Nurse Practitioner Family
DX: E10.65 Type 1 diabetes mellitus with hyperglycemia (principal); D64.9 Anemia, unspecified; F41.9 Anxiety disorder, unspecified; E78.5 Hyperlipidemia, unspecified; E10.22 Type 1 diabetes mellitus with diabetic chronic kidney disease; I12.9 Hypertensive chronic kidney disease with stage 1 through stage 4 chronic kidney disease, or unspecified chronic kidney disease; N18.32 Chronic kidney disease, stage 3b; Z79.4 Long term (current) use of insulin; E10.40 Type 1 diabetes mellitus with diabetic neuropathy, unspecified; Z98.890 Other specified postprocedural states

== ENCOUNTER → 2024-07-02 | Outpatient (CLI) | payer OTHER | END | disposition home or self-care (01) | LOC: ORTHO 02:20 | PROVIDERS: ATTEND Orthopaedic Surgery | DX: S82.841D Displaced bimalleolar fracture of right lower leg, subsequent encounter for closed fracture with routine healing (principal); M25.471 Effusion, right ankle; X58.XXXD Exposure to other specified factors, subsequent encounter ==

== ENCOUNTER → 2024-07-31 | Outpatient (CLI) | payer OTHER | END | disposition home or self-care (01) | LOC: ORTHO 00:33 | PROVIDERS: ATTEND Orthopaedic Surgery | DX: S82.841D Displaced bimalleolar fracture of right lower leg, subsequent encounter for closed fracture with routine healing (principal); M79.89 Other specified soft tissue disorders; X58.XXXD Exposure to other specified factors, subsequent encounter ==

== ENCOUNTER → 2024-09-14 | Outpatient (CLI) | payer OTHER | END | disposition home or self-care (01) | LOC: ORTHO 01:59 | PROVIDERS: ATTEND Orthopaedic Surgery | DX: S82.841D Displaced bimalleolar fracture of right lower leg, subsequent encounter for closed fracture with routine healing (principal); X58.XXXD Exposure to other specified factors, subsequent encounter ==

== ENCOUNTER → 2024-09-25 | Outpatient (CLI) | payer OTHER | END | disposition home or self-care (01) | LOC: RAD 08-31 10:00 | PROVIDERS: ATTEND Orthopaedic Surgery | DX: Z13.820 Encounter for screening for osteoporosis (principal); S91.011D Laceration without foreign body, right ankle, subsequent encounter; M79.89 Other specified soft tissue disorders; R26.2 Difficulty in walking, not elsewhere classified; L89.626 Pressure-induced deep tissue damage of left heel; E11.9 Type 2 diabetes mellitus without complications; I10 Essential (primary) hypertension; D75.89 Other specified diseases of blood and blood-forming organs; M24.571 Contracture, right ankle; F43.21 Adjustment disorder with depressed mood; Z79.899 Other long term (current) drug therapy; Z87.81 Personal history of (healed) traumatic fracture; X58.XXXD Exposure to other specified factors, subsequent encounter ==